=== PATIENT | male | born 1960 | race African-American/Black ===

== ENCOUNTER 2022-07-09 09:32 | Inpatient (IN) | payer MEDICAID, OTHER ==
[~2022-07-09] VITALS: Ht 193 cm; Wt 68.1 kg
[2022-07-09] MEDS ORDERED: SODIUM CHLORIDE 0.9% 1,000 ML IV ONE (10:15)
[2022-07-09 10:33] LABS: Eosinophils # (auto) 0 10 ^3/uL (0-0.8); Hemoglobin 11.6 g/dL (13.5-17.5); Lymphocytes # (auto) 1.2 10 ^3/uL (0.4-5.4); Monocytes % (auto) 7.7 % (0.0-12.0); Neutrophils # (auto) 5.3 10 ^3/uL (1.6-8.6); Red Cell Distribution Width 16.5 % (11.8-14.3); White Blood Cell 7.1 10^3/uL (4.4-10.8)
[2022-07-09 10:35] LABS: Basophils # (auto) 0 10 ^3/uL (0-0.2); Basophils % (auto) 0.5 % (0.0-2.0); Eosinophils % (auto) 0.1 % (0.0-7.0); Hematocrit 36.3 % (41.0-53.0); Lymphocytes % (auto) 17.3 % (10.0-50.0); Mean Corpuscular Hemoglobin 24.5 pg (28.0-32.0); Mean Corpuscular Volume 76.7 fL (80.0-100.0); Monocytes # (auto) 0.6 10 ^3/uL (0-1.3); Neutrophils % (auto) 74.4 % (37.0-80.0); Red Blood Cells 4.73 10^6/uL (4.5-5.90)
[2022-07-09 10:53] LABS: Albumin 2.9 g/dL (3.4-5.0); Calcium 8.2 mg/dL (8.5-10.1); Potassium 4.3 mmol/L (3.5-5.1)
[2022-07-09 10:57] LABS: BUN/Creatinine Ratio 18.2; Bilirubin, Total 0.5 mg/dL (0.2-1.0); Total Protein 5.2 g/dL (6.4-8.2)
[2022-07-09 12:36] LABS: Urine Bacteria NONE SEEN /hpf (None Seen); Urine Blood Negative /uL (Negative); Urine Mucus FEW (None Seen); Urine Specific Gravity 1.019 (1.001-1.035); Urine WBC 2 /hpf (0 - 3)
[2022-07-09] MEDS ORDERED: AZITHROMYCIN 500MG/ 250ML 250 ML IV ONE (14:30)
[2022-07-09] MEDS ORDERED: cefTRIAXone 1GM/50ML D5W 50 ML IV ONE (14:30)
[2022-07-09] MEDS ORDERED: NITROGLYCERIN 0.4 MG SL TAB SL PRN (15:45)
[2022-07-09] MEDS ORDERED: ONDANSETRON HCL 4 MG/2 ML VIAL IV PRN (15:45)
[2022-07-09] MEDS ORDERED: ACETAMINOPHEN 325 MG TAB PO PRN (15:45)
[2022-07-09] MEDS ORDERED: VANCOMYCIN PER PHARMACY 0 MG IV SCH (15:45)
[2022-07-09] MEDS ORDERED: DOCUSATE SOD 100 MG CAP PO PRN (15:45)
[2022-07-09] MEDS ORDERED: MORPHINE SULFATE INJ 2 MG/ml SYRG IV PRN ×2 (15:45)
[2022-07-09] MEDS: SODIUM CHLORIDE 0.9% 1,000 ML IV SCH (16:44)
[2022-07-09 17:20] LABS: INR 1.24 (0.9-1.15)
[2022-07-09 17:27] LABS: Magnesium 2.1 mg/dL (1.6-2.6); Phosphorus 2.4 mg/dL (2.5-4.90)
[2022-07-09] MEDS ORDERED: DEXTROSE (50%) 50ML SYRG IV PRN (17:30)
[2022-07-09] MEDS ORDERED: VANCOMYCIN 1GM/250ML 250 ML IV ONE ×2 (17:45→19:00)
[2022-07-09] MEDS: InsuLIN REG 1unit/0.01ml Soln (100units/ml) SC SCH ×2 (18:00→18:22)
[2022-07-09] MEDS: ACCU-CHEK COMFORT CURVE STRIP VI SCH (18:15)
[2022-07-09 20:19] LABS: Cholesterol 122 mg/dL (< 200)
[2022-07-09 20:22] LABS: HDL Cholesterol 25 mg/dL (40-59); LDL Cholesterol 89 mg/dL (< 100); Triglycerides 81 mg/dL (< 150)
[2022-07-09 20:30] LABS: Free T4 (Free Thyroxine) 1.4 ng/dL (0.89-1.76)
[2022-07-09 21:12] LABS: Folate (Folic Acid) 17.26 ng/mL (5.38-24)
[2022-07-09] MEDS: CEFEPIME 2 GM in SODIUM CHL 0.9% 50 ML IV SCH (22:00)
[2022-07-09] MEDS ORDERED: ATORVASTATIN 20 MG TAB PO SCH (22:00)
[2022-07-10] MEDS: ACCU-CHEK COMFORT CURVE STRIP VI SCH ×4 (00:18→18:09)
[2022-07-10] MEDS: InsuLIN REG 1unit/0.01ml Soln (100units/ml) SC SCH ×4 (00:18→18:00)
[2022-07-10] MEDS: VANCOMYCIN 1GM/250ML 250 ML IV SCH ×2 (04:56→14:50)
[2022-07-10 05:05] LABS: Basophils # (auto) 0 10 ^3/uL (0-0.2); Eosinophils # (auto) 0 10 ^3/uL (0-0.8); Hemoglobin 9.9 g/dL (13.5-17.5); Lymphocytes # (auto) 2.7 10 ^3/uL (0.4-5.4)
[2022-07-10 05:07] LABS: Basophils % (auto) 0.4 % (0.0-2.0); Eosinophils % (auto) 0.3 % (0.0-7.0); Hematocrit 30.1 % (41.0-53.0); Lymphocytes % (auto) 39.5 % (10.0-50.0); Mean Corpuscular Hemoglobin 25.4 pg (28.0-32.0); Mean Corpuscular Volume 76.8 fL (80.0-100.0); Monocytes # (auto) 0.7 10 ^3/uL (0-1.3); Monocytes % (auto) 10.8 % (0.0-12.0); Neutrophils # (auto) 3.3 10 ^3/uL (1.6-8.6); Red Blood Cells 3.91 10^6/uL (4.5-5.90); Red Cell Distribution Width 16.3 % (11.8-14.3); White Blood Cell 6.8 10^3/uL (4.4-10.8)
[2022-07-10 05:24] LABS: Albumin 2.4 g/dL (3.4-5.0); Calcium 7.8 mg/dL (8.5-10.1); Potassium 4.5 mmol/L (3.5-5.1)
[2022-07-10 05:28] LABS: BUN/Creatinine Ratio 17.2; Bilirubin, Total 0.5 mg/dL (0.2-1.0); Total Protein 4.3 g/dL (6.4-8.2)
[2022-07-10] MEDS ORDERED: IOHEXOL 350 MG/ML 100ML IJ ONE (07:47)
[2022-07-10] MEDS: CEFEPIME 2 GM in SODIUM CHL 0.9% 50 ML IV SCH ×3 (07:57→21:07)
[2022-07-10] MEDS: SODIUM CHLORIDE 0.9% 1,000 ML IV SCH (08:25)
[2022-07-10] MEDS: CLOPIDOGREL BISULFATE 75 MG TAB PO SCH (11:07)
[2022-07-10] MEDS: ENOXAPARIN SOD 40 MG/0.4 ML SYRINGE SC SCH (11:07)
[2022-07-10 18:37] VITALS: BP 135/63
[2022-07-10] MEDS: ATORVASTATIN 20 MG TAB PO SCH (21:01)
[2022-07-11] MEDS: SODIUM CHLORIDE 0.9% 1,000 ML IV SCH (01:29)
[2022-07-11] MEDS: VANCOMYCIN 1GM/250ML 250 ML IV SCH ×2 (01:29→10:20)
[2022-07-11 04:49] VITALS: BP 132/71
[2022-07-11] MEDS: InsuLIN REG 1unit/0.01ml Soln (100units/ml) SC SCH ×4 (06:00→17:53)
[2022-07-11] MEDS: CEFEPIME 2 GM in SODIUM CHL 0.9% 50 ML IV SCH (06:12)
[2022-07-11] MEDS: ACCU-CHEK COMFORT CURVE STRIP VI SCH ×4 (06:16→17:53)
[2022-07-11 08:15] VITALS: BP 121/73
[2022-07-11 09:16] VITALS: BP 121/73
[2022-07-11] MEDS: ENOXAPARIN SOD 40 MG/0.4 ML SYRINGE SC SCH ×2 (10:00→10:20)
[2022-07-11] MEDS: CLOPIDOGREL BISULFATE 75 MG TAB PO SCH (10:20)
[2022-07-11 13:00] VITALS: BP 131/68
[2022-07-11 17:19] VITALS: BP 120/55
[2022-07-11] MEDS ORDERED: guaiFENesin-DM 100/10mg/5ml SYR PO PRN (21:30)
[2022-07-11 21:55] VITALS: BP 110/64
[2022-07-11] MEDS ORDERED: ATORVASTATIN 20 MG TAB ONE (22:00)
[2022-07-11] MEDS: ATORVASTATIN 20 MG TAB PO SCH (22:04)
[2022-07-11] MEDS ORDERED: LORazepam 2MG/ML-1ML VIAL IV PRN (22:15)
[2022-07-11] MEDS ORDERED: DEXTROSE (50%) 50ML SYRG IV PRN (22:30)
[2022-07-11] MEDS ORDERED: MORPHINE SULFATE INJ 2 MG/ml SYRG IV PRN ×2 (22:30)
[2022-07-11] MEDS ORDERED: NITROGLYCERIN 0.4 MG SL TAB SL PRN (22:30)
[2022-07-11] MEDS ORDERED: ONDANSETRON HCL 4 MG/2 ML VIAL IV PRN (22:30)
[2022-07-11] MEDS ORDERED: DOCUSATE SOD 100 MG CAP PO PRN (22:30)
[2022-07-12] VITALS (7 sets, daily range): BP systolic 111–136; BP diastolic 55–78
[2022-07-12] MEDS ORDERED: GADOTERATE MEG 10 MMOL/20ml INJ (0.5MMOL/ml) IV ONE (08:20)
[2022-07-12] MEDS: ENOXAPARIN SOD 40 MG/0.4 ML SYRINGE SC SCH (09:14)
[2022-07-12] MEDS: CLOPIDOGREL BISULFATE 75 MG TAB PO SCH (09:15)
[2022-07-12] MEDS: ACETAMINOPHEN 325 MG TAB PO PRN (09:16)
[2022-07-12 09:31] LABS: Basophils # (auto) 0.1 10 ^3/uL (0-0.2); Eosinophils # (auto) 0 10 ^3/uL (0-0.8); Hemoglobin 10.9 g/dL (13.5-17.5); Lymphocytes # (auto) 2.5 10 ^3/uL (0.4-5.4); Monocytes # (auto) 0.7 10 ^3/uL (0-1.3); Neutrophils # (auto) 2.7 10 ^3/uL (1.6-8.6); Red Cell Distribution Width 16.6 % (11.8-14.3); White Blood Cell 5.9 10^3/uL (4.4-10.8)
[2022-07-12 09:33] LABS: Eosinophils % (auto) 0.4 % (0.0-7.0); Hematocrit 33.8 % (41.0-53.0); Mean Corpuscular Hemoglobin 24.6 pg (28.0-32.0); Mean Corpuscular Hgb Conc. 32.1 g/dL (32.0-36.0); Mean Corpuscular Volume 76.6 fL (80.0-100.0); Monocytes % (auto) 11.1 % (0.0-12.0); Neutrophils % (auto) 45.5 % (37.0-80.0); Nucleated Red Blood Cells % 0.1 %; Red Blood Cells 4.41 10^6/uL (4.5-5.90)
[2022-07-12 09:51] LABS: Albumin 2.6 g/dL (3.4-5.0); Calcium 8.1 mg/dL (8.5-10.1); Potassium 4.1 mmol/L (3.5-5.1)
[2022-07-12 09:54] LABS: BUN/Creatinine Ratio 13.9; Bilirubin, Total 0.4 mg/dL (0.2-1.0); Total Protein 4.6 g/dL (6.4-8.2)
[2022-07-12] MEDS: cefTRIAXone 1GM/50ML D5W 50 ML IV SCH (12:03)
[2022-07-12] MEDS: AZITHROMYCIN 500MG/ 250ML 250 ML IV SCH (13:00)
[2022-07-12] MEDS ORDERED: ATORVASTATIN 20 MG TAB PO SCH (22:00)
[2022-07-13 05:00] VITALS: BP 125/75
[2022-07-13] MEDS: ACETAMINOPHEN 325 MG TAB PO PRN (06:23)
[2022-07-13 08:00] VITALS: BP 118/67
[2022-07-13] MEDS: cefTRIAXone 1GM/50ML D5W 50 ML IV SCH (08:18)
[2022-07-13 08:20] VITALS: BP 118/67
[2022-07-13] MEDS: CLOPIDOGREL BISULFATE 75 MG TAB PO SCH (09:40)
[2022-07-13] MEDS: AZITHROMYCIN 500MG/ 250ML 250 ML IV SCH (09:41)
[2022-07-13] MEDS: ENOXAPARIN SOD 40 MG/0.4 ML SYRINGE SC SCH (09:41)
[2022-07-13 12:00] VITALS: BP 115/73
[2022-07-13] MEDS ORDERED: ATOR20TA50 PO (15:51)
[2022-07-13] MEDS ORDERED: CLOP75TA70 PO (15:51)
[2022-07-13] MEDS ORDERED: AMOX500T86 PO (15:57)
[2022-07-13 16:16] VITALS: BP 115/73
== END 2022-07-13 16:55 | disposition home health service (06) | DRG 45 ==
LOC: ER 09:32 → TELE 16:00 → TELE-WESTW 07-10 17:20 → UNDODISIN 07-11 13:00
PROVIDERS: ADMIT Nurse Practitioner Family; ATTEND Student in an Organized Health Care Education/Training Program
DX: I63.9 Cerebral infarction, unspecified (principal); G93.41 Metabolic encephalopathy; E44.1 Mild protein-calorie malnutrition; E86.0 Dehydration; J90 Pleural effusion, not elsewhere classified; J15.6 Pneumonia due to other Gram-negative bacteria; I49.3 Ventricular premature depolarization; R91.1 Solitary pulmonary nodule; Z20.822 Contact with and (suspected) exposure to COVID-19; J43.9 Emphysema, unspecified; Z87.891 Personal history of nicotine dependence; Z79.899 Other long term (current) drug therapy; Z82.49 Family history of ischemic heart disease and other diseases of the circulatory system; Z79.02 Long term (current) use of antithrombotics/antiplatelets; Z68.1 Body mass index [BMI] 19.9 or less, adult
CPT/HCPCS: 36415; 70450; 70496; 70551; 70553; 71045; 71250; 74176; 80053; 80061; 80202; 81001; 82553; 82607; 82746; 82962; 83036; 83735; 84100; 84439; 84443; 84484; 85025; 85379; 85610; 86703; 86738; 87040; 87081; 87278; 93005; 93306; 93886; 95819; 96361; 96365; 96368; G0378; J0696; J1815

== ENCOUNTER 2023-01-22 11:05 | Inpatient (IN) | payer MEDICAID ==
[~2023-01-22] VITALS: Ht 188 cm; Wt 80.4 kg
[~2023-01-22 11:05] MED LIST: AMOX500T86 PO; ATOR20TA50 PO; CLOP75TA70 PO
[2023-01-22] MEDS ORDERED: SODIUM CHLORIDE 0.9% 1,000 ML IVB ONE (12:15)
[2023-01-22 12:52] LABS: Basophils # (auto) 0.1 10 ^3/uL (0-0.2); Eosinophils # (auto) 0 10 ^3/uL (0-0.8); Hematocrit 40.6 % (41.0-53.0); Hemoglobin 13.2 g/dL (13.5-17.5); Lymphocytes # (auto) 1.7 10 ^3/uL (0.4-5.4); Lymphocytes % (auto) 22.2 % (10.0-50.0); Mean Corpuscular Hemoglobin 27.4 pg (28.0-32.0); Mean Corpuscular Hgb Conc. 32.5 g/dL (32.0-36.0); Mean Corpuscular Volume 84.3 fL (80.0-100.0); Monocytes # (auto) 0.1 10 ^3/uL (0-1.3); Monocytes % (auto) 1.9 % (0.0-12.0); Neutrophils # (auto) 5.7 10 ^3/uL (1.6-8.6); Neutrophils % (auto) 74.9 % (37.0-80.0); Nucleated Red Blood Cells % 0.2 %; Red Blood Cells 4.82 10^6/uL (4.5-5.90); Red Cell Distribution Width 20.7 % (11.8-14.3); White Blood Cell 7.7 10^3/uL (4.4-10.8)
[2023-01-22 12:52] LABS: Urine Bacteria NONE SEEN /hpf (None Seen); Urine Blood Negative /uL (Negative); Urine Specific Gravity 1.018 (1.001-1.035); Urine WBC <1 /hpf (0 - 3)
[2023-01-22 13:02] LABS: Alcohol, Urine < 3.0 mg/dL (0-10); Amphetamine Screen, Urine NEGATIVE (NEGATIVE); Barbiturate Scree,Urine NEGATIVE (NEGATIVE); Benzodiazephine Screen, Urine NEGATIVE (NEGATIVE); Cannabinoid Screen, Urine NEGATIVE (NEGATIVE); Cocaine Screen, Urine NEGATIVE (NEGATIVE); Opiate Scree,Urine NEGATIVE (NEGATIVE); Phencyclidine Screen, Urine NEGATIVE (NEGATIVE)
[2023-01-22 13:07] LABS: INR 1.11 (0.9-1.15); Partial Thromboplastin Time 25.2 sec (24.6-33.4)
[2023-01-22 13:53] LABS: Anion Gap 6 (5-15); Blood Urea Nitrogen 24 mg/dL (7-18); Calcium 8.7 mg/dL (8.5-10.1); Carbon Dioxide 25 mmol/L (21-32); Chloride 101 mmol/L (98-107); Glucose 124 mg/dL (74-106); Magnesium 2.3 mg/dL (1.6-2.6); Potassium 4.7 mmol/L (3.5-5.1); Sodium 132 mmol/L (136-145)
[2023-01-22 14:05] LABS: Alanine Aminotransferase 69 U/L (16-61); Alkaline Phosphatase 75 U/L (45-117); Aspartate Aminotransferase 16 U/L (15-37); BUN/Creatinine Ratio 19.2 (10.0-20.0); Bilirubin, Total 0.4 mg/dL (0.2-1.0); Blood Alcohol < 3.0 mg/dL (0-5); GFR African American 75 mL/min; GFR Non-African American 62 mL/min
[2023-01-22] MEDS ORDERED: ACETAMINOPHEN 325 MG TAB PO PRN (17:45)
[2023-01-22] MEDS: SODIUM CHLORIDE 0.9% 1,000 ML IV SCH (17:45)
[2023-01-22] MEDS ORDERED: PANTOPRAZOLE 40 MG/10 ML VIAL INJ IV ONE (18:15)
[2023-01-22] MEDS: ATORVASTATIN 20 MG TAB PO SCH (23:57)
[2023-01-23 06:41] LABS: Hematocrit 40.4 % (41.0-53.0); Hemoglobin 13.4 g/dL (13.5-17.5); Mean Corpuscular Hgb Conc. 33.3 g/dL (32.0-36.0); Red Cell Distribution Width 19.9 % (11.8-14.3); White Blood Cell 8.5 10^3/uL (4.4-10.8)
[2023-01-23 06:58] LABS: Potassium 4.1 mmol/L (3.5-5.1)
[2023-01-23 07:03] LABS: BUN/Creatinine Ratio 17.9 (10.0-20.0); Bilirubin, Total 0.6 mg/dL (0.2-1.0); Total Protein 5.4 g/dL (6.4-8.2)
[2023-01-23 07:04] LABS: Band Neutrophils % (manual) 0; Basophils % (manual) 0 (0.0-2.0); Blast Cells 0; Eosinophils % (manual) 0 (0-7); Metamyelocytes % 0; Myelocytes % 0; Promyelocytes % 0
[2023-01-23 08:18] LABS: Lymphocytes % (manual) 47 (10.0-50.0)
[2023-01-23 08:19] LABS: Monocytes % (manual) 9 (0-12); Reactive Lymphocytes 6
[2023-01-23] MEDS ORDERED: CLOPIDOGREL BISULFATE 75 MG TAB PO SCH (10:00)
[2023-01-23] MEDS: ENOXAPARIN SOD 40 MG/0.4 ML SYRINGE SC SCH (10:05)
[2023-01-23] MEDS: lamoTRIgine 25 MG TAB PO SCH ×2 (10:05→22:19)
[2023-01-23] MEDS: PANTOPRAZOLE 40 MG/10 ML VIAL INJ IV SCH (10:05)
[2023-01-23] MEDS: CHOLECALCIFEROL (VITD3) 2,000 UNIT CAP/TAB PO SCH (10:06)
[2023-01-23] MEDS: predniSONE 20 MG TAB PO SCH (10:06)
[2023-01-23] MEDS: SODIUM CHLORIDE 0.9% 1,000 ML IV SCH (10:25)
[2023-01-23] MEDS ORDERED: cefTRIAXone 1GM/50ML D5W 50 ML IV ONE (12:00)
[2023-01-23 22:00] VITALS: BP 139/67
[2023-01-23] MEDS: ATORVASTATIN 20 MG TAB PO SCH (22:17)
[2023-01-23] MEDS: traZODone HCL 50 MG TAB PO SCH (22:20)
[2023-01-24] MEDS: SODIUM CHLORIDE 0.9% 1,000 ML IV SCH ×2 (03:05→19:45)
[2023-01-24 05:00] VITALS: BP 120/78
[2023-01-24 08:00] VITALS: BP 117/79
[2023-01-24 09:08] VITALS: BP 106/76
[2023-01-24] MEDS: cefTRIAXone 1GM/50ML D5W 50 ML IV SCH (09:34)
[2023-01-24] MEDS: PANTOPRAZOLE 40 MG/10 ML VIAL INJ IV SCH (09:36)
[2023-01-24] MEDS: ENOXAPARIN SOD 40 MG/0.4 ML SYRINGE SC SCH (09:37)
[2023-01-24] MEDS: predniSONE 20 MG TAB PO SCH (09:38)
[2023-01-24] MEDS: CHOLECALCIFEROL (VITD3) 2,000 UNIT CAP/TAB PO SCH (09:38)
[2023-01-24] MEDS: lamoTRIgine 25 MG TAB PO SCH ×2 (09:38→22:52)
[2023-01-24 12:30] VITALS: BP 117/79
[2023-01-24 16:32] VITALS: BP 120/76
[2023-01-24 22:00] VITALS: BP_SYST 103; BP_SYST 129; BP_DIAS 67; BP_DIAS 81
[2023-01-24] MEDS: ATORVASTATIN 20 MG TAB PO SCH (22:51)
[2023-01-24] MEDS: traZODone HCL 50 MG TAB PO SCH (22:52)
[2023-01-25 05:00] VITALS: BP 130/89
[2023-01-25 08:30] VITALS: BP 117/74
[2023-01-25] MEDS: PANTOPRAZOLE 40 MG/10 ML VIAL INJ IV SCH (10:15)
[2023-01-25] MEDS: cefTRIAXone 1GM/50ML D5W 50 ML IV SCH ×2 (10:23→11:23)
[2023-01-25] MEDS: ENOXAPARIN SOD 40 MG/0.4 ML SYRINGE SC SCH (10:23)
[2023-01-25] MEDS: CHOLECALCIFEROL (VITD3) 2,000 UNIT CAP/TAB PO SCH (10:23)
[2023-01-25] MEDS: lamoTRIgine 25 MG TAB PO SCH (10:24)
[2023-01-25] MEDS: predniSONE 20 MG TAB PO SCH (10:24)
[2023-01-25] MEDS: SODIUM CHLORIDE 0.9% 1,000 ML IV SCH ×2 (10:32→11:32)
[2023-01-25] MEDS ORDERED: LAMO100T44 PO (11:22)
[2023-01-25] MEDS ORDERED: ATO40T PO (11:22)
[2023-01-25] MEDS ORDERED: PANT40T PO (11:22)
[2023-01-25] MEDS ORDERED: PRED20TA2 PO (11:22)
[2023-01-25] MEDS ORDERED: LEVO500T31 PO (11:32)
[2023-01-25 12:47] VITALS: BP 117/72
[2023-01-25 14:15] VITALS: BP 117/72
== END 2023-01-25 16:17 | disposition home health service (06) | DRG 720 ==
LOC: ER 11:05 → EDBD 11:05 → OVERFLOW 17:37 → WEST WING 01-23 21:32
PROVIDERS: ADMIT Nurse Practitioner Family; ATTEND Family Medicine
PROC: 4A00X4Z Measurement of Central Nervous Electrical Activity, External Approach (ICD-10-PCS; principal; 2023-01-24)
DX: A41.9 Sepsis, unspecified organism (principal); J69.0 Pneumonitis due to inhalation of food and vomit; G93.41 Metabolic encephalopathy; E44.0 Moderate protein-calorie malnutrition; J90 Pleural effusion, not elsewhere classified; F03.C0 Unspecified dementia, severe, without behavioral disturbance, psychotic disturbance, mood disturbance, and anxiety; L89.899 Pressure ulcer of other site, unspecified stage; E78.00 Pure hypercholesterolemia, unspecified; D86.89 Sarcoidosis of other sites; Z88.1 Allergy status to other antibiotic agents; Z91.041 Radiographic dye allergy status; Z88.0 Allergy status to penicillin; Z91.013 Allergy to seafood; Z88.8 Allergy status to other drugs, medicaments and biological substances; Z91.018 Allergy to other foods; Z68.22 Body mass index [BMI] 22.0-22.9, adult
CPT/HCPCS: 36415; 70450; 71045; 80053; 80307; 80320; 81001; 83605; 83735; 84484; 85007; 85025; 85027; 85610; 85730; 87040; 87086; 93005; 95819; 96361; 96365; 96372; 96375; 97163; C9113; G0378; J0696